=== PATIENT | female | born 1955 | race African-American/Black ===

== ENCOUNTER 2017-09-21 21:31 | Emergency (ER) | payer SELFPAY ==
[~2017-09-21] VITALS: Ht 167.6 cm; Wt 63.5 kg
[2017-09-21 21:35] VITALS: BP 140/90
[2017-09-21 23:34] LABS: BASOPHILS % (AUTO) 1.7 % (0.0-2.0); EOSINOPHILS % (AUTO) 1.6 % (0.0-3.0); HEMATOCRIT 37.8 % (37.0-47.0); HEMOGLOBIN 11.7 G/DL (12.0-16.0); MEAN CORPUSCULAR VOLUME 89 FL (80-99); MONOCYTES % (AUTO) 8.4 % (1.0-10.0); NEUTROPHILS % (AUTO) 57.3 % (45.0-75.0); PLATELET COUNT 209 K/UL (150-450); RED BLOOD COUNT 4.26 M/UL (4.20-5.40); RED CELL DISTRIBUTION WIDTH 13.3 % (11.6-14.8); WHITE BLOOD COUNT 7.4 K/UL (4.8-10.8)
[2017-09-21 23:44] LABS: ANION GAP 5 mmol/L (5-15); BLOOD UREA NITROGEN 17 mg/dL (7-18); CALCIUM 9.2 MG/DL (8.5-10.1); CARBON DIOXIDE 31 MMOL/L (21-32); CHLORIDE 105 MMOL/L (98-107); CREATININE 0.7 MG/DL (0.55-1.30); POTASSIUM 3.9 MMOL/L (3.5-5.1); SODIUM 141 MMOL/L (136-145)
[2017-09-22 01:00] VITALS: BP 159/90
[2017-09-22 03:30] VITALS: BP 160/78
--- NOTE | 2017-09-22 05:04 | Emergency Room Report ---
History of Present Illness General Chief Complaint: Altered Level of Consciousness Source: Patient Present Illness HPI Patient was brought in by paramedics for reports of altered mental status Initially the patient was responsive to physical stimuli only Throughout her stay the patient has become more oriented at this time is awake alert ambulating in the emergency room Denies any chest pain denies any short of breath Patient reports that she was hungry Reports that she has not slept over the last couple of nights and that's why she was tired Allergies: Coded Allergies: PENICILLINS (Verified Allergy, Unknown, 09/21/17) Patient History Past Medical History: see triage record Pertinent Family History: none Last Menstrual Period: n/a Reviewed Nursing Documentation: PMH: Agreed, PSxH: Agreed Nursing Documentation-PMH Past Medical History: No History, Except For Hx Cardiac Problems: No - left leg in brace Review of Systems All Other Systems: negative except mentioned in HPI Physical Exam Vital Signs Date Time Temp Pulse Resp B/P (MAP) Pulse Ox O2 Delivery O2 Flow Rate FiO2 09/21/17 21:20 97.5 98 16 140/90 98 Room Air Sp02 EP Interpretation: reviewed, normal General Appearance: well appearing, no apparent distress Head: normocephalic, atraumatic Eyes: bilateral eye PERRL, bilateral eye EOMI ENT: hearing grossly normal, normal pharynx, TMs + canals normal, uvula midline Neck: full range of motion, supple, no meningismus, no bony tend Respiratory: lungs clear, normal breath sounds, no rhonchi, no respiratory distress, no retraction, no accessory muscle use Cardiovascular #1: normal peripheral pulses, regular rate, rhythm, no edema, no gallop, no JVD, no murmur Gastrointestinal: normal bowel sounds, non tender, soft, no mass, no organomegaly, non-distended, no guarding, no pulsatile mass, no rebound, hernia - Patient has several mid abdominal hernia is easily reducible evidence of previous surgery, Genitourinary: no CVA tenderness Musculoskeletal: normal inspection Neurologic: oriented x3 - Initially the patient was somnolent, however has become oriented GCS 15 throughout her stay, responsive, body and fender worker III-XII nml as tested, motor strength/tone normal, sensory intact Psychiatric: mood/affect normal Skin: normal color, no rash, warm/dry, palpation normal Lymphatic: normal inspection, no adenopathy Medical Decision Making Diagnostic Impression: Primary Impression: general weakness ER Course Multiple differentials are considered patient had extensive blood work and imaging obtained CT head did not show any acute disease Patient's blood work is appropriate patient continued to stabilize throughout her stay and at this time is appropriate for close followup Patient's dispositioned, medically, at this time further discussion with social work/morning staff required for final disposition of the patient it is unclear if the patient is homeless. Labs Test 09/21/17 23:15 White Blood Count 7.4 K/UL (4.8-10.8) Red Blood Count 4.26 M/UL (4.20-5.40) Hemoglobin 11.7 G/DL (12.0-16.0) Hematocrit 37.8 % (37.0-47.0) Mean Corpuscular Volume 89 FL (80-99) Mean Corpuscular Hemoglobin 27.6 PG (27.0-31.0) Mean Corpuscular Hemoglobin Concent 31.0 G/DL (32.0-36.0) Red Cell Distribution Width 13.3 % (11.6-14.8) Platelet Count 209 K/UL (150-450) Mean Platelet Volume 8.7 FL (6.5-10.1) Neutrophils (%) (Auto) 57.3 % (45.0-75.0) Lymphocytes (%) (Auto) 31.0 % (20.0-45.0) Monocytes (%) (Auto) 8.4 % (1.0-10.0) Eosinophils (%) (Auto) 1.6 % (0.0-3.0) Basophils (%) (Auto) 1.7 % (0.0-2.0) Sodium Level 141 MMOL/L (136-145) Potassium Level 3.9 MMOL/L (3.5-5.1) Chloride Level 105 MMOL/L (98-107) Carbon Dioxide Level 31 MMOL/L (21-32) Anion Gap 5 mmol/L (5-15) Blood Urea Nitrogen 17 mg/dL (7-18) Creatinine 0.7 MG/DL (0.55-1.30) Estimat Glomerular Filtration Rate > 60 mL/min (>60) Glucose Level 222 MG/DL (74-106) Calcium Level 9.2 MG/DL (8.5-10.1) Serum Alcohol < 3 mg/dL CT/MRI/US Diagnostic Results CT/MRI/US Diagnostic Results : Impression CT head no acute disease Last Vital Signs Date Time Temp Pulse Resp B/P (MAP) Pulse Ox O2 Delivery O2 Flow Rate FiO2 09/22/17 03:30 97.4 75 16 160/78 96 Room Air Status: improved Disposition: HOME, SELF-CARE Condition: Improved Referrals: NOT CHOSEN IPA/MD,REFERRING (PCP) Patient Instructions: Weakness, [id number] Additional Instructions: Patient is provided with the discharge instructions notified to follow up with primary doctor in the next 2-3 days otherwise return to the er with any worsening symptoms. Please note that this report is being documented using [email or web address] technology. This can lead to erroneous entry secondary to incorrect interpretation by the dictating instrument. YUNI JAEGER D.O. Sep 22, 2017 05:04
[2017-09-22 05:53] VITALS: BP 172/80
[2017-09-22 07:46] VITALS: BP 150/76
--- NOTE | 2017-09-22 08:33 | Diagnostic Imaging Report ---
Indication: Altered mental status Technique: Continuous helical CT scanning of the head was performed utilizing automated exposure control without intravenous contrast material. Axial and coronal reconstructions were obtained. Comparison: None CT dose: Total DLP 1383.12 mGycm; CTDI vol 70.38 mGy Findings: There is no acute intracranial hemorrhage, mass effect or cortical edema. The ventricles, cisterns and sulci are mildly prominent consistent with age-related atrophy. Periventricular hypoattenuation is seen, a nonspecific finding most commonly reflective of sequela of chronic microvascular ischemia. Visualized mastoid air cells and paranasal sinuses are unremarkable. No focal lesions of the bony calvarium or soft tissues of the scalp are seen. Impression: No evidence of acute intracranial hemorrhage, mass effect or cortical edema. MRI may be obtained for more sensitive evaluation as clinically indicated. Chronic and senescent changes as above. This corresponds with the statrad preliminary report. The CT scanner at [facility] is accredited by the [employer] and the scans are performed using protocols designed to limit radiation exposure to as low as reasonably achievable to attain images of sufficient resolution adequate for diagnostic evaluation.
== END 2017-09-22 07:46 | disposition home or self-care (01) ==
LOC: EDBD 21:31 → EMR 23:05
DX: R53.1 Weakness (principal); R41.82 Altered mental status, unspecified; Z88.0 Allergy status to penicillin
CPT/HCPCS: 36415; 70450; 80048; 85025; 99284; G0480; 80329